=== PATIENT | female | born 1990 | race Two or more races ===

== ENCOUNTER 2020-02-16 10:04 | Emergency (ER) | payer OTHER ==
[~2020-02-16] VITALS: Ht 165.1 cm; Wt 62.1 kg
--- NOTE | 2020-02-16 10:22 | NUR ---
PT REC'D TO ER VIA EMS FOUND S;EEPING NAKED ON STREET GIVEN CLOTHES AND FOOD VSS AWAITING EVALUATION BY ER PROVIDER.
[2020-02-16] MEDS ORDERED: LORAZEPAM INJ 2 MG/ML VIAL IM ONE (10:30)
[2020-02-16] MEDS ORDERED: HALOPERIDOL LACTATE INJ 5 MG/ML VIAL IM ONE (10:30)
[2020-02-16] MEDS ORDERED: LORAZEPAM INJ 2 MG/ML VIAL ONE (10:30)
[2020-02-16] MEDS ORDERED: HALOPERIDOL LACTATE INJ 5 MG/ML VIAL ONE (10:30)
--- NOTE | 2020-02-16 10:35 | NUR ---
MEDS GIVEN PER MD ORDER PT FELL ASLEEP
--- NOTE | 2020-02-16 11:15 | NUR ---
ua sent to lab
--- NOTE | 2020-02-16 13:08 | NUR ---
pt sleeping resp even unlabored vss
--- NOTE | 2020-02-16 18:00 | NUR ---
pt awake sugned homeless waiver wants to leave given dinner and clothes and shoes . vss amb stable gaitPatient discharged to home in stable condition. Written and verbal after care instructions given. Patient verbalizes understanding of instruction.
[2020-02-16 18:03] VITALS: BP 133/54
== END 2020-02-16 18:08 | disposition home or self-care (01) ==
LOC: ER 10:06
DX: F29 Unspecified psychosis not due to a substance or known physiological condition (principal); R45.1 Restlessness and agitation; Z59.0 Homelessness
CPT/HCPCS: 96372 ×2; 99284; J1630; J2060